=== PATIENT | female | born 1990 | race Caucasian/White ===

== ENCOUNTER → 2018-02-21 | Outpatient (CLI) | payer SELFPAY | LOC: LAB 12:47 | PROVIDERS: ATTEND Midwife | DX: Z36.9 Encounter for antenatal screening, unspecified (principal) | CPT/HCPCS: 36415; 85027; 86592; 86706; 86762; 86850; 86900; 86901 ==

== ENCOUNTER → 2018-03-19 | Outpatient (CLI) | payer SELFPAY ==
--- NOTE | 2018-03-19 15:51 | RADIOLOGY IMAGING REPORT ---
FAC[place] [facility] [place] NAME: Karina Miranda : 1990 MR: [id number] V: [id number] EXAM DATE: ORDERING PHYSICIAN: ZAKIYA REESE TECHNOLOGIST: Location: [facility] - [place] Patient: Karina Miranda : 1990 Visit/Account:[id number] Date of Sevice: 03/19/2018 OB ANATOMICAL SURVEY HISTORY: Screening COMPARISON: None. TECHNIQUE: Transabdominal imaging was performed for assessment of the fetus and maternal pelvic s tructures. Transvaginal imaging was not performed. FINDINGS: Intrauterine gestations: One. presentation: Transverse presentation with the head to the maternal right. heart rate: 142 bpm. Amniotic fluid volume: Normal; LEIGH 20.9 cm; MVP 6.4 cm. Placenta: Anterior. Uterus: Gravid, otherwise grossly unremarkable where visualized. Maternal adnexa/ovaries: Grossly unremarkable, ovaries not visualized. Cervix: Grossly long and closed. Gestational Parameters: BPD: 4.86, 55th percentile HC: 18.86 cm, 68th percentile AC: 17.31 cm, 98th percentile FL: 3.42 cm, 48th percentile Average ultrasound age (AUA): 21 weeks/ two days Estimated age based on LMP: 20 weeks/ four days Estimated weight (EFW): 429 grams +/- 63 grams Anatomic Survey: Intracranial structures, 4-chamber heart, stomach, kidneys, urinary bladder, spine, 3-vessel cord and cord insertion are unremarkable. Two upper and two lower extremities visualized. IMPRESSION: Single viable fetus in transverse presentation with an estimated gestational age by measurements of 2 1 weeks and two days. The estimated weight is 429 g +/- 63 g LEIGH measures 20.9 cm consistent with mild polyhydramnios Report Dictated By: Elina Shannon MD at 03/19/2018 3:39 PM Report E-Signed By: Elina Shannon MD at 03/19/2018 3:46 PM WSN:[id number]
== END ==
LOC: US 01:07
PROVIDERS: ATTEND Midwife
DX: Z36.0 Encounter for antenatal screening for chromosomal anomalies (principal); Z34.92 Encounter for supervision of normal pregnancy, unspecified, second trimester
CPT/HCPCS: 76811